=== PATIENT | male | born 1975 | race Caucasian/White ===

== ENCOUNTER 2016-10-28 23:58 | Emergency (ER) | payer SELFPAY ==
[~2016-10-28] VITALS: Ht 182.9 cm; Wt 116.0 kg
[2016-10-29] VITALS: BP 156/111
[2016-10-29] MEDS ORDERED: HYDROcodone/APAP 5/325 TABLET ONE (01:28)
[2016-10-29] MEDS ORDERED: HYDROcodone/APAP 5/325 TABLET PO ONE (01:30)
== END 2016-10-29 02:39 | disposition home or self-care (01) ==
LOC: ED 23:59
DX: M77.9 Enthesopathy, unspecified (principal); Z88.0 Allergy status to penicillin; F17.200 Nicotine dependence, unspecified, uncomplicated
CPT/HCPCS: 29125

== ENCOUNTER 2018-11-03 20:37 | Emergency (ER) | payer OTHER ==
[~2018-11-03] VITALS: Ht 182.9 cm; Wt 115.0 kg
[2018-11-03 20:50] VITALS: BP 141/104
[2018-11-03] MEDS ORDERED: COLCHICINE 0.6 MG CAPSULE PO ONE (22:30)
[2018-11-03] MEDS ORDERED: KETOROLAC 30 MG/1 ML IM ONE (22:30)
[2018-11-03] MEDS ORDERED: KETOROLAC 30 MG/1 ML ONE (22:42)
[2018-11-03] MEDS ORDERED: COLCHICINE 0.6 MG CAPSULE ONE (22:50)
[2018-11-03 22:54] LABS: MEAN CORPUSCULAR HEMOGLOBIN 27.8 pg (27.5-34.5); MEAN CORPUSCULAR HGB CONC 32.7 g/dL (33.2-36.2); MEAN CORPUSCULAR VOLUME 85.1 fL (81-97); MEAN PLATELET VOLUME 8.9 fL (7.4-10.4); PLATELET COUNT 325 x10^3/uL (130-400); RED BLOOD COUNT 5.65 x10^6/uL (4.38-5.82); RED CELL DISTRIBUTION WIDTH 14.7 % (9.4-14.8)
[2018-11-03 22:57] LABS: HCT (SEDRATE) 48.1 % (39.2-51.8)
[2018-11-03 23:08] LABS: BASOPHILS # (AUTO) 0.26 x10^3/uL (0-0.1); BASOPHILS % (AUTO) 2 % (0-1); EOSINOPHILS # (AUTO) 0.05 x10^3/uL (0-0.4); EOSINOPHILS % (AUTO) 0 % (1-7); LYMPHOCYTES # (AUTO) 1.56 x10^3/uL (1-3.4); LYMPHOCYTES % (AUTO) 10 % (22-44); MD SCAN; MONOCYTES # (AUTO) 0.78 x10^3/uL (0.2-0.8); MONOCYTES % (AUTO) 5 % (2-9); NEUTROPHILS # (AUTO) 13.13 x10^3/uL (1.8-6.8); NEUTROPHILS % (AUTO) 83 % (42-75)
== END 2018-11-03 23:59 | disposition home or self-care (01) ==
LOC: ED 23:40
DX: M13.132 Monoarthritis, not elsewhere classified, left wrist (principal); M10.032 Idiopathic gout, left wrist
CPT/HCPCS: 36415; 73110; 84550; 85025; 85651; 96372; 99284; J1885

== ENCOUNTER 2019-06-09 07:08 | Emergency (ER) | payer MEDICAID, OTHER ==
[~2019-06-09] VITALS: Ht 185.4 cm; Wt 110.9 kg
--- NOTE | 2019-06-09 08:15 | NUR ---
PT. IS A & O X 4 WITH A [employer] OF 15. PT. HAS C/O LEFT FOOT PAIN AFTER TWISTING IT AT WORK THEN WALKING ON IT ALL NIGHT. CMS CHECKS REMAIN INTACT WITH PULSES +2,CAP REFILL IS BRISK. PT. DENIES ANY OTHER MEDICAL COMPLAINTS. PT.'S LUNGS ARE CTA. MM ARE PINK AND MOIST WITH PULSES +2 THROUGHOUT. PT. IS RESTING WITHOUT CONCERNS. PT. IS AMBULATORY AT THIS TIME. STEADY GAIT.
--- NOTE | 2019-06-09 09:24 | NUR ---
PT. WAS GIVEN DISCHARGE INSTRUCTIONS WITH UNDERSTANDING VERBALIZED ALONG WITH WILLINGNESS TO COMPLY. PT. WAS AMBULATORY TO DISCHARGE WITH A STEADY GAIT.
[2019-06-09 09:25] VITALS: BP 134/94
== END 2019-06-09 09:29 | disposition home or self-care (01) ==
LOC: ED 08:14
DX: M25.572 Pain in left ankle and joints of left foot (principal); Z72.0 Tobacco use
CPT/HCPCS: 99284

== ENCOUNTER 2019-06-10 17:07 | Emergency (ER) | payer MEDICAID, OTHER ==
[~2019-06-10] VITALS: Ht 185.4 cm; Wt 110.0 kg
[2019-06-10 17:43] VITALS: BP 124/86
[2019-06-10] MEDS ORDERED: KETOROLAC 30 MG/1 ML IM ONE (18:00)
[2019-06-10] MEDS ORDERED: KETOROLAC 30 MG/1 ML ONE (18:10)
== END 2019-06-10 18:32 ==
LOC: ED 18:18
DX: S93.602A Unspecified sprain of left foot, initial encounter (principal); F17.200 Nicotine dependence, unspecified, uncomplicated; X50.1XXA Overexertion from prolonged static or awkward postures, initial encounter; Y93.89 Activity, other specified; Y92.69 Other specified industrial and construction area as the place of occurrence of the external cause; Y99.0 Civilian activity done for income or pay
CPT/HCPCS: 96372; 99283; J1885